=== PATIENT | male | born 1985 | race Caucasian/White ===

== ENCOUNTER 2017-01-20 01:01 | Emergency (ER) | payer MEDICAID ==
[~2017-01-20] VITALS: Ht 182.9 cm; Wt 95.2 kg
[2017-01-20 01:23] VITALS: BP 163/108; PULSE 101; RESP 18; O2SAT 99
--- NOTE | 2017-01-20 02:35 | ED.REPORT ---
HPI-Rash / Abscess Date of Service Jan 20, 2017 ED Provider: Cj Albrecht MD 37-year-old male with insignificant past medical history reports today with pain in the mid superior portion of the buttocks. He also reports an unidentified growth in the same area which occasionally loses blood and/or pus. He states that he has had these symptoms for the past 4 years and they have been getting progressively worse. He has seen multiple doctors who have prescribed him a myriad of treatments including antibiotics. He states that he has tried treating this on his own by attempting to drain it using various sharp objects. He states that recently the pain has become progressive in the growth has become larger and is concerning for possible infection. He states that recently he has developed nausea and associates this with the growth and pain in this region. Pain is 6/10 localized to the area described above. Does not radiate. Pain as well as oozing appears to be intermittent, and it is currently in a state where it wakes him up at night. Nursing Notes Stated Complaint: LUMP ON LOWER BACK,PAINFUL Chief Complaint: Skin Rash/Abscess Allergies: Coded Allergies: shrimp (Verified Allergy, Unknown, 01/20/17) Scheduled Amoxicillin/Clav K ER 1000-62.5 mg (Amoxicillin/Clav K ER 1000-62.5 mg) 1 Each Tab.er.12h 1 TABLET PO BID General Time Seen by MD: 02:15 Chief Complaint Abscess Hx Obtained From: Patient Arrived By: Walk-in Onset Occurred: More than a week ago... (>6 months) Symptom Duration: Intermittent Severity: Current: Pain level 6 out of 10 Associated with: Reports Nausea, Denies Abdominal pain, Denies Fever, Denies Headache, Denies Shaking chills, Denies Vomiting Past Medical History Past Medical History No significant past medical history Review of Systems Complete sys rev & neg: except as marked. Physical Exam Initial Vital Signs Vital Signs (First) Date Time Temp Pulse Resp B/P Pulse Ox O2 Delivery O2 Flow Rate FiO2 01/20/17 01:23 36.8 101 18 163/108 99 Room Air Initial VS: Reviewed, Vital signs abnormal Head / Eyes: Atraumatic, Normocephalic, PERRL ENT: Mucous membranes moist, Conjunctiva normal, No scleral icterus Neck: Supple, Non-tender, Full range of motion Respiratory: Breath sounds normal, No respiratory distress Abdomen / GI: Soft, Non-tender, No guarding, No rebound, No distention Extremities: Vascular intact, Neuro intact, No swelling, No tenderness Neurologic: Alert, Oriented, Nonfocal Psychiatric: Mood/affect normal, Behavior normal, Normal thought content Abscess #1 Location/Condition: Positive: Pilonidal... (Draining) Procedures Incision & Drainage Abscess I & D Abscess: Area was cleaned with antiseptic, and numbed with lidocaine prior to surgical incision. Surgical drapes were used. Incision was made with 11 blade scalpel. Direct pressure was used to slow down the bleeding. Area was packed with surgical wicking. Site was covered with antibiotic ointment, gauze, and feminine pad to control bleeding. Blood loss approximately 10-20 mL. Patient tolerated procedure well. Time: 03:12 Procedure Performed by: ED physician, ED resident Consent / Setup / Site Prep: Informed consent provided, Consent from patient Skin Preparation Agent: Hibiclens - Chlorhexidine Local Anesthesia: Lidocaine w epi 1% Incised Abscess with Scalpel: #11 Pus Drained: Medium, Bloody Irrigation: No Post-Procedure / Complications: Packing placed, Dressing applied, No complications, Tolerated procedure well, Patient stable Re-Eval/Medical Decision Med Decision/Clinical Course The lesion is suggestive of pilonidal cyst. After long discussion with the patient about whether or not to drain the cyst here in the office today he elected to have it drained prior to seeing a general surgeon. Procedure is tolerated well, and there were no complications. Counseled Regarding: Diagnosis, Lab results, Need for follow-up, When/why to return to ED Discharge & Departure Impression: Primary Impression: Pilonidal cyst Disposition: Home Discharge Condition All VS Reviewed: Yes Condition: Stable Patient Instructions: Pilonidal Cyst (ED) Additional Instructions: The pain you are experiencing is related to a pilonidal cyst. These lesions are generally treated on an outpatient basis with referral to general surgery. We were able to drain the cyst in the office today to hopefully decrease swelling and inflammation such that the surgeon will be more likely to definitively take care of the issue when you are seen in the office. The cyst was drained here in the ED, with no complications associated with the drainage. Please take Augmentin as prescribed, for coverage of infection. Follow-up with general surgery. In the meantime, as per our discussion increase blood flow to the area helps with healing drainage. I recommend warm baths and/or warm compresses to the area and/or multiple showers daily. It is also important to keep the areas where it is possible for affective drainage to occur. If you develop fever chills, vomiting, lethargy, or other significant change in symptoms please return to the emergency department at that time. Referrals: [facility] (PCP) [facility] Attending Statement As attending of record for this patient, I conducted an independent history and physical examination, and agree with the resident documentation as above and as amended. I was present for and participated fully in the procedure documented above. Kimani Payne DO Jan 20, 2017 02:34 JAY FORDE Jan 20, 2017 03:10 Cj Albrecht MD Jan 20, 2017 07:09
[2017-01-20] MEDS ORDERED: AMOX-354 PO (03:52)
[2017-01-20] MEDS ORDERED: Amoxicillin-Clav 875-125 mg Tablet PO ONE (03:55)
[2017-01-20 04:06] VITALS: BP 138/80; PULSE 92; RESP 16; O2SAT 100
== END 2017-01-20 04:07 | disposition home or self-care (01) ==
LOC: SED 01:01
DX: L05.91 Pilonidal cyst without abscess (principal)

== ENCOUNTER → 2017-04-01 | Day surgery (SDC) | payer OTHER ==
[~2017-04-01] VITALS: Ht 182.9 cm; Wt 92.3 kg
[~2017-04-01] MED LIST: ACET-171 PO; AMOX-354 PO; Bupivacaine Liposome 1.3% 20 mL Inj INFILTRATE ONE; Bupivacaine Liposome 1.3% 20 mL Inj ONE; CLON0.1T PO; CeFAZolin 2 Gm/50 mL D5W Duplex Bag IV ONE; CeFAZolin 2 Gm/50 mL D5W IV Premix IV ONE; CeFAZolin Inj 2 GM in Dextrose 5% 50 ML IV ONE; Dexamethasone 4 mg/mL Inj IVPUSH PRN; EPHEDrine Sulfate 50 mg/mL Inj IVPUSH PRN; HYDROmorphone 1 mg/mL Inj IVPUSH PRN; IBUP-1827 PO; Lactated Ringer's 1,000 ML IV ONE; Lactated Ringer's 1,000 ML IV SCH; Lactated Ringer's 500 ML IV PRN; MetoCLOpramide 5 mg/mL 2 mL Inj IVPUSH PRN; OXYC-530 PO; Ondansetron 2 mg/mL 2 mL Inj IVPUSH PRN; Ondansetron 2 mg/mL 2 mL Inj ONE; POLY17PO6 PO; Phenylephrine 10,000 mCg/mL Inj IVPUSH PRN; Propofol 10,000 mCg/mL 20 mL Inj ONE; fentaNYL-PF 50 mCg/mL 2 mL Inj IVPUSH PRN; fentaNYL-PF 50 mCg/mL 2 mL Inj ONE
--- NOTE | 2017-04-01 09:12 | PCM.HPANE ---
Patient Data Surgeon Admitting Provider: Attending Provider:Gail Roth MD Primary Care Physician:Fly Rivera DO Other Provider:Monik Schmidt Anesthesia Reason for Visit Pilonidal Cyst With Abcess Ht/WT & BMI Height (Feet): 5 Height (Inches): 9 Weight (Kilograms): 91.2 Body Mass Index 29.00 Allergies Coded Allergies: quetiapine (Verified Allergy, Unknown, 04/01/17) shrimp (Verified Allergy, Unknown, 04/01/17) Past Anesthesia History Anesthesia History: Denies:: Abnormal Airway, Anesthesia Reactions, Difficult Intubation, Fam Anesthesia Reaction, Fam Malignant Hypertherm, Malignant Hyperthermia Diabetes History Hx Diabetes?: No MRSA MRSA: No Medications Hypertension Medication: No Home Meds Incl Beta Michael: No Active Scripts Amoxicillin/Clav K ER 1000-62.5 mg 1 Each Tab.er.12h1 Tablet PO BID #14 TABLET Ref 0 Prov:Cj Albrehct MD 01/20/17 Reported Medications Clonidine 0.1 Mg Tablet0.1 Mg PO HS Ref 0 02/18/17 History History of ENT Problems?: No HEENT History: Denies:: Abnormal Airway Cataracts Difficult Intubation Dysphagia Glaucoma Hearing Problem Sinus Problem TMJ Denture Type: None Teeth Condition: Within Normal Limits Hx of Heart Problems?: No Cardiovascular History: Positive for:: Heart Murmur (not investigated) Denies:: Congestive Heart Failure Hypertension Hx of Respiratory Problem?: No Respiratory History: Denies:: Tuberculosis Hx Neurologic Problems?: No Neurological History: Positive for:: TIA (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) Hx of GI Problems?: No Hx of Problems?: No HX of Peritoneal Dialysis: No Hx Musculoskeletal Problems?: No Hx Surgeries?: No Hx Diabetes: No Hx Alcohol Use: Yes (RARE)Hx Substance Use: NoHave You Smoked inLast 12 mo: No Stop/Bang Treated for Sleep Apnea?: No Do You Have a CPAP Machine?: No S-Snoring: Do You Snore Loudly: No T-Tired: feel tired, fatigued: No O-Obsered: Observed not breath: No P-Blood Pressure: treated: No B- Body Mass Index > 35 kg/m2: No A- Age over 50: No N- Neck Large Circumference: No G- Gender Male: Yes [place] Risk Assessment: Low Risk, <3 Yes Risk Assessment Category Category 1A: Patient has history of documented sleep apnea, and HAS NOT received any narcotic, sedative or anesthesia administration during this stay. Category 1B: Patient has history of documented sleep apnea, and HAS received any narcotic , sedative or anesthesia administration during this stay Category 2: Patient has SUSPECTED Obstructive Sleep Apnea, and HAS received any narcotic , sedative or anesthesia administration during this stay. Category 3: Patient has SUSPECTED Obstructive Sleep Apnea and HAS NOT received narcotic, sedative or anesthesia administration during this stay. Category 4: Outpatient in Procedural Areas with known sleep apnea or who screen positive for High Risk via the STOP/BANG questionnaire. Exam Exam General Appearance: Alert, Oriented X3, Cooperative, No Acute Distress HEENT/AIRWAY: MP 2 Lungs: Clear to Auscultation, Normal Air Movement Heart: Exam Unremarkable, Regular Rate/Rhythm, No Murmurs/Rubs/Gallops Plan Impression Patient chart reviewed, patient interviewed and anesthestic plan with risks, benefits, and alternatives discussed, and informed consent obtained. NPO per Anesth. Guidelines: Yes ASA Physical Status: ASA1 Normal Healthy Anesthetic Support Modalities: [place] Scope (small chin,glidescope on standby) Anesthetic Plan: GA Bene/Risks/Altern/Consents: Yes HP Complete Prior to Induction: Yes Lucia Jaquez MD Apr 01, 2017 09:12
[2017-04-01 13:55] VITALS: BP 157/89; PULSE 101; RESP 16; O2SAT 98
--- NOTE | 2017-04-01 17:32 | PCM.SURGOP ---
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 On exam, he had several midline pits and a 1.5 cm area of hypertrophic granulation tissue. After discussion of risks and benefits, he agreed to proceed with excision of pilonidal cyst. Findings: There were at least 3 midline pits, with a chronic inflammatory sinus tract extending left to the area of hypertrophic granulation tissue off the midline. Procedure Details After smooth induction of general endotracheal anesthesia, he was rolled and placed in the prone jackknife position on a Jose frame. Hair was shaved. Hairs were emanating from the midline pits. He was prepped and draped in a wide sterile fashion. A procedural pause was performed according to the SCOAP checklist, and all were found to be in agreement. A 4 cm elliptical incision was made to the left of the gluteal crease, encompassing the area of protuberant hypertrophic granulation tissue, and extending inferiorly to the level of the inferior most pit. Dissection was carried through the subcutaneous tissue and skin flaps were raised. Circumferential dissection was carried out with electrocautery around the chronic sinus tract and subcutaneous cyst. There was quite a bit of chronic inflammatory tissue with granulation tissue, but no pus. Once the cyst and sinus tract were excised to the level of the midline pits, the pits were debrided with curettes. There was no residual inflammatory tissue. A confluent area of pits resulted in a 5 mm skin opening in the midline after debridement. The pilonidal cyst was sent for permanent pathology. Skin flaps were then developed further. The subcutaneous tissue was then advanced by elevating off the underlying gluteus muscle for cleft lift closure. These flaps were approximated with a series of interrupted 3-0 Vicryl sutures. Interrupted deep dermal 3-0 Vicryl sutures were placed, as well as in the debrided midline pit area. The skin incision was closed with interrupted 3-0 nylon vertical mattress sutures. Sterile dressings were applied. At the end of the case all needle and sponge counts were correct 2. The patient was awakened from anesthesia without difficulty, and taken to the recovery room in satisfactory condition, having tolerated the procedure well. Complications There were no periprocedural complications identified. Surgical Specimen Removed: Yes Specimen sent to Pathology: Yes Surgical Specimen description: Pilonidal cyst Anesthetic Plan: GA Grafts, Implants: None Output, Estimated Blood Loss: 20 Blood Administration during abdul: No Drains: None Catheters: None copies to: Fly Rivera Joshua D MD Apr 01, 2017 17:32
--- NOTE | 2017-04-01 17:47 | PCM.DISURG ---
Surgical Discharge Instruction Date of Service Apr 01, 2017 Dates of Hospitalization Date of Hospital Admission Providers Admitting Physician: Primary Care Physician: Fly Rivera DO Attending Physician: Gail Roth MD Discharge Diagnosis Post Operative diagnosis Same Diet Discharge Diet: No restrictions Activity Discharge Activity-General: No restrictions Dressing and Incisional Care Dressing Care: Change soiled dressing (as needed to keep area clean and dry.) Hygiene: May shower, NO bathtub, hot tub or whirlpool (until after seen in follow up.) Additional Instructions Discharge Instructions We will remove your stitches at your follow up appointment. Keep the wound clean and dry. You may shower and let warm, soapy water run over the incision. You may keep the incision covered with gauze. It is normal for it to drain some fluid for up to a 1-2 weeks. Follow Up Plan Follow Up Plan 2-3 weeks Mid-level Provider (F9): Partha Vu PA-C Call your provider for: Fever, Wound redness Smiley Carson MD Apr 01, 2017 17:47
[2017-04-01 17:48] VITALS: BP 154/81; PULSE 94; RESP 12; O2SAT 100
--- NOTE | 2017-04-01 17:53 | PCM.ANEP1 ---
Post Anesthesia PACU Phase 1 Assessment Vital Signs Vital Signs Date Time Temp Pulse Resp B/P Pulse Ox O2 Delivery O2 Flow Rate FiO2 04/01/17 17:48 36.6 94 12 154/81 100 Simple Mask 6 04/01/17 13:55 35.6 101 16 157/89 98 Anesthetic Administered: GA Level of Alertness: Sleepy, easy to arouse Pain: No Nausea or Vomiting: No CV Function & Hydration Stable: Yes Airway Device: Oralpharangeal Airway Lungs: Clear to Auscultation, Normal Air Movement PACU Phase 2 Assessment Patient Instructions Provided: Yes Lucia Jaquez MD Apr 01, 2017 17:53
[2017-04-01 17:59] VITALS: BP 146/77; PULSE 113; RESP 14; O2SAT 100
[2017-04-01 18:21] VITALS: BP 160/97; PULSE 109; RESP 16; O2SAT 96
[2017-04-01 18:36] VITALS: BP 146/95; PULSE 107; RESP 16; O2SAT 97
--- NOTE | 2017-04-04 15:20 | PATH ---
SURGICAL PATHOLOGY Attending Physician:Gail Roth MD CASE STATUS: Signed Out PATIENT NAME: SUREKHA CASTAÑEDA PID: [id number] : 1985 DATE COLLECTED:04/01/2017 00:00 SPECIMEN: Pilonidal Cyst CLINICAL HISTORY: PILONIDAL CYST 1). PILONIDAL CYST FINAL DIAGNOSIS: 1.PILONIDAL CYST, EXCISION: - SKIN WITH ULCER, SINUS TRACT, AND GRANULATION TISSUE WITH ASSOCIATED MIXED INFLAMMATION AND DETACHED FRAGMENTS OF HAIR SHAFT. ICD10 L05.92 GROSS DESCRIPTION: The specimen is received in one formalin filled container labeled with the patient's name, sublabeled "pilonidal cyst" and consists of a roa-renteria portion of skin and tissue which measures 4.0 x 1.6 x 3.0 CM. Centrally located on the epidermal surface is a roa-renteria raised and rough area which measures 1.0 CM in diameter. Surgical margins are inked blue. 2 billing representative sections are submitted in 2 cassettes. 04/02/2017DC MICRO DESCRIPTION: See diagnosis. ICD-9 CODES: CPT CODES: 1: 93270 Electronically Signed Out Lazaro Diane MD [facility] Pathology [facility] [address], [place] [address] Technical component performed at [facility], [address] [place] [address] Ave[address], [place], [address]
== END | disposition home or self-care (01) ==
LOC: SAS 13:25
PROVIDERS: ATTEND Student in an Organized Health Care Education/Training Program
DX: L05.01 Pilonidal cyst with abscess (principal); F31.9 Bipolar disorder, unspecified; G47.00 Insomnia, unspecified; F41.9 Anxiety disorder, unspecified; G44.309 Post-traumatic headache, unspecified, not intractable; F15.10 Other stimulant abuse, uncomplicated; Z87.891 Personal history of nicotine dependence
CPT/HCPCS: 11772; J0690; J2175; J2405; J2704; J3010; J7120